=== PATIENT | female | born 1960 | race Caucasian/White ===

== ENCOUNTER → 2019-11-18 | Outpatient (CLI) | payer SELFPAY ==
[~2019-11-18] MED LIST: LISI5; METF500 PO; MULTI VITAMIN1 EACH PO
== END | disposition home or self-care (01) ==
LOC: LAB SHORT 14:14 → PLD 14:14
DX: D22.39 Melanocytic nevi of other parts of face (principal)
CPT/HCPCS: 88305

== ENCOUNTER → 2023-07-24 | Outpatient (CLI) | payer MEDICARE, BC ==
[2023-07-24 17:43] LABS: Creatinine Urine 72.4 mg/dL (27.00-270.00)
[2023-07-24 17:47] LABS: Calcium, Urine 22.8 mg/dL (< 17.5); Calcium, Urine Calculation 319.2 mg/24hrs (42.0-353.0)
== END | disposition home or self-care (01) ==
LOC: LAB SHORT 14:11 → LAB 14:11
PROVIDERS: Internal Medicine Endocrinology, Diabetes & Metabolism
DX: E21.0 Primary hyperparathyroidism (principal)
CPT/HCPCS: 82340; 82570

== ENCOUNTER 2023-08-08 06:12 | Day surgery (SDC) | payer MEDICARE, BC ==
[~2023-08-08] VITALS: Ht 154.9 cm; Wt 71.0 kg
[2023-08-08] MEDS ORDERED: OXYB5 PO (06:43)
--- NOTE | 2023-08-08 07:29 | NUR ---
08/08/23 0729 Whitney Bass MARY IN ROOM WITH PT, DICUSSING AFTER CARE WITH PT INCLUDING GOING TO ER IF SX OF LOW CA GET SEVERE
--- NOTE | 2023-08-08 08:09 | NUR ---
08/08/23 0809 Angie Hughes LIDOCAINE 2% 1:100,000 DILUTED 1:1 WITH NORMAL SALINE TO MAKE LIDOCAINE 1% 1:200,000 FOR INJECTION AT OPSITE BY DR WINTERS. 3 MLS INJECTED.
[2023-08-08 09:45] VITALS: BP 141/69
--- NOTE | 2023-08-08 10:39 | NUR ---
08/08/23 1039 Aiden Oneal IV REMOVED INTACT. SITE WNL.
== END 2023-08-08 10:36 | disposition home or self-care (01) ==
LOC: ORSCSDS 06:12
PROVIDERS: Otolaryngology
PROC: 0GBL0ZZ Excision of Right Superior Parathyroid Gland, Open Approach (ICD-10-PCS; principal; 2023-08-08 07:30)
DX: E21.0 Primary hyperparathyroidism (principal); E04.1 Nontoxic single thyroid nodule; I10 Essential (primary) hypertension; E11.9 Type 2 diabetes mellitus without complications; Z79.899 Other long term (current) drug therapy; Z87.891 Personal history of nicotine dependence
CPT/HCPCS: 82947; 83970; 88305; J0330; J1100; J2250; J2371; J2405; J2704; J3010; J7120

== ENCOUNTER 2024-09-15 00:10 | Day surgery (SDC) | payer MEDICARE, BC ==
[~2024-09-15 00:10] MED LIST changes: -LISI5; +LISI5 PO; +OXYB5 PO
[2024-09-15] MEDS ORDERED: ZOLEDRONIC ACID/MANNITOL-WATER 100 ML IV SCH (06:00)
[2024-09-15 16:15] VITALS: BP 145/64
[2024-09-15] MEDS ORDERED: GABA300 PO (16:43)
[2024-09-15] MEDS ORDERED: GLIP5ER PO (16:43)
[2024-09-15] MEDS ORDERED: Crestor40 MG PO (16:44)
[2024-09-15 16:58] VITALS: BP 138/62
== END 2024-09-15 17:00 | disposition home or self-care (01) ==
LOC: ATC 00:10
DX: M81.8 Other osteoporosis without current pathological fracture (principal); E21.0 Primary hyperparathyroidism; E78.2 Mixed hyperlipidemia; F33.0 Major depressive disorder, recurrent, mild; E04.2 Nontoxic multinodular goiter; E55.9 Vitamin D deficiency, unspecified; E78.00 Pure hypercholesterolemia, unspecified; E11.42 Type 2 diabetes mellitus with diabetic polyneuropathy; Z88.5 Allergy status to narcotic agent; Z88.8 Allergy status to other drugs, medicaments and biological substances
CPT/HCPCS: 96374; J3489